=== PATIENT | male | born 1945 | race Caucasian/White ===

== ENCOUNTER 2020-12-15 15:16 | Inpatient (IN) | payer MEDICARE, OTHER, SELFPAY ==
[2020-12-15 15:45] VITALS: BP 190/110; PULSE 117; RESP 23; TEMP 37.8; O2SAT 91; BMI 26.9
--- NOTE | 2020-12-15 15:55 | XR_ITS ---
PROCEDURE INFORMATION: Exam: XR Chest Exam date and time: 12/15/2020 3:55 PM Age: 75 years old Clinical indication: Pain; Cough and fever and shortness of breath; Chest pressure; Additional info: Cough, fever, covid test pending TECHNIQUE: Imaging protocol: XR of the chest. Views: 2 views. COMPARISON: No relevant prior studies available. FINDINGS: Lungs: Faint bilateral airspace opacities scattered left more than right Pleural spaces: Unremarkable. No pleural effusion. No pneumothorax. Heart/Mediastinum: Unremarkable. No cardiomegaly. Bones/joints: Unremarkable. IMPRESSION: Faint bibasilar airspace opacities most likely represent infection
--- NOTE | 2020-12-15 15:57 | HMH.EDUTC ---
[facility] [place] Clinical Impression: LISBETH (acute kidney injury) Disposition: Admitted As Inpatient Condition on Discharge: Fair Medical Decision Making - Medical Records Medical records reviewed: No: I reviewed the patient's medical records. - [place] Inquiry Pt receiving controlled substance: No Vital Signs: 12/15/20 15:45 12/15/20 16:48 12/15/20 18:05 Temperature 100.1 F H 102.8 F H 101.2 F H Temperature Source Oral Oral Oral Pulse Rate Pulse Rate [Right] 117 H 113 H Respiratory Rate 23 22 Blood Pressure Blood Pressure [Right Arm] 190/110 H 184/89 H Blood Pressure Mean [Right Arm] 136 120 Blood Pressure Source Blood Pressure Position Blood Pressure Position [Right Arm] Sitting 02 Sat by Pulse Oximetry 91 L 91 L Oxygen Delivery Method Room Air Room Air Oxygen Flow Rate (LPM) 12/15/20 21:25 Temperature 98.2 F Temperature Source Oral Pulse Rate 100 H Pulse Rate [Right] Respiratory Rate 22 Blood Pressure 159/70 H Blood Pressure [Right Arm] Blood Pressure Mean [Right Arm] Blood Pressure Source Automatic Cuff Blood Pressure Position Sitting Blood Pressure Position [Right Arm] 02 Sat by Pulse Oximetry Oxygen Delivery Method Nasal Cannula Oxygen Flow Rate (LPM) 2 - Lab Data Lab results reviewed: Yes: I reviewed the patient's lab results. Lab Results 12/15/20 15:48: SARS-CoV-2 (PCR) Detected A, Influenza A Untype (PCR) Not detected, Influenza Type B (PCR) Not detected 12/15/20 16:31: WBC 9.1, RBC 4.67, Hgb 12.7 L, Hct 39.5 L, MCV 84.6, MCH 27.3, MCHC 32.3, RDW 14.6, Plt Count 241, MPV 8.4, Neut % (Auto) 74.6, Lymph % (Auto) 20.9, [place] % (Auto) 4.1, Eos % (Auto) 0.1, Baso % (Auto) 0.3, Neut # (Auto) 6.8, Lymph # (Auto) 1.9, [place] # (Auto) 0.4, Eos # (Auto) 0.0, Baso # (Auto) 0.0 12/15/20 16:31: Sodium 140, Potassium 4.9, Chloride 110 H, Carbon Dioxide 15 L, Anion Gap 19.9 H, BUN 46 H, Creatinine 2.00 H, Estimated Creat Clear 39, Estimated GFR 33 L, Est GFR ( Amer) 40 L, Glucose 156 H, Calcium 8.5, Total Bilirubin 0.7, AST 49, ALT 35, Alkaline Phosphatase 105, Total Protein 8.1, Albumin 4.5, Globulin 3.6 H, Albumin/Globulin Ratio 1.3 12/15/20 17:52: Specimen Source Left radial, O2 % Room air, ABG pH 7.37, ABG pCO2 26.6 L, ABG pO2 65.3 L, ABG HCO3 15.1 L, ABG Total CO2 16.0 L, ABG O2 Saturation 93, ABG Base Excess -10.1 L, Emiliano Test Acceptable 12/15/20 19:37: Sodium 139, Potassium 4.8, Chloride 109 H, Carbon Dioxide 17 L, Anion Gap 17.8 H, BUN 45 H, Creatinine 1.70 H, Estimated Creat Clear 46, Estimated GFR 40 L, Est GFR ( Amer) 48 L, Glucose 142 H, Calcium 7.8 L Result diagrams: 12/15/20 16:31 12/15/20 19:37 Orders (Tests/Meds): ED MEDICATIONS Generic Name Dose Route Start Last Admin Trade Name Freq PRN Reason Stop Dose Admin Lactated Ringer's 1,000 mls @ 999 mls/hr 12/15/20 21:56 Lactated Ringer's 1000 Ml Bag IV 12/15/20 22:56 .Q1H1M PHILLIP Lactated Ringer's 1,000 mls @ 50 mls/hr 12/15/20 21:56 Lactated Ringer's 1000 Ml Bag IV 01/14/21 21:55 .Q20H PHILLIP Discontinued Medications Generic Name Dose Route Start Last Admin Trade Name Freq PRN Reason Stop Dose Admin Lactated Ringer's 500 mls @ 999 mls/hr 12/15/20 17:45 12/15/20 18:04 Lactated Ringer's 1000 Ml Bag IV 12/15/20 18:15 999 mls/hr .Q31M PHILLIP Administration Lactated Ringer's 1,000 mls @ 999 mls/hr 12/15/20 19:15 12/15/20 19:12 Lactated Ringer's 1000 Ml Bag IV 12/15/20 20:15 999 mls/hr .Q1H1M [facility] Administration - Radiology Data #1 Image(s): Chest Image Reviewed: Yes I reviewed the patient's radiology image, Yes I have reviewed radiologist's interpretation Preliminary Findings: Abnormal ROCEDURE INFORMATION: Exam: XR Chest Exam date and time: 12/15/2020 3:55 PM Age: 75 years old Clinical indication: Pain; Cough and fever and shortness of breath; Chest pressure; Additional info: Cough, fever, covid test pending TECHNIQUE: Imaging protocol
[2020-12-15 16:28] LABS: Influenza A, PCR Not Detected (NotDetected); Influenza B, PCR Not Detected (NotDetected)
[2020-12-15 16:48] VITALS: BP 184/89; PULSE 113; RESP 22; TEMP 39.3; O2SAT 91; BMI 27.3
[2020-12-15 16:54] LABS: Coronavirus 19, PCR Detected (NotDetected)
[2020-12-15 17:20] LABS: Basophils % 0.3 % (0.1-2.0); Eosinophils % 0.1 % (0.1-12.0); Hematocrit 39.5 % (42.0-52.0); Hemoglobin 12.7 g/dL (14.1-18.0); Lymphocytes # 1.9 K/mm3 (0.7-4.5); Lymphocytes % 20.9 % (10-50); Mean Corpuscular HGB Conc 32.3 g/dL (31.8-35.4); Mean Corpuscular Hemoglobin 27.3 pg (27.0-31.2); Mean Corpuscular Volume 84.6 fl (80-94); Mean Platelet Volume 8.4 fl (7.4-10.4); Monocytes # 0.4 K/mm3 (0.1-1.0); Monocytes % 4.1 % (1.7-9.3); Neutrophils # 6.8 K/mm3 (1.8-7.8); Neutrophils % 74.6 % (37.0-80.0); Platelet Count 241 K/mm3 (142-424); Red Blood Count 4.67 M/mm3 (4.60-6.20); Red Cell Distribution Width 14.6 % (11.5-17.5); White Blood Count 9.1 K/mm3 (4.8-10.8)
[2020-12-15 17:22] LABS: Chloride 110 mmol/L (98-107); Potassium 4.9 mmoL/L (3.5-5.1); Sodium 140 mmol/L (136-145)
[2020-12-15 17:25] LABS: Alanine Aminotransferase 35 U/L (12-78); Albumin Level 4.5 g/dl (3.5-5.0); Albumin/Globulin Ratio 1.3 (1.1-1.8); Alkaline Phosphatase 105 U/L (38-126); Anion Gap 19.9 mEq/L (5-15); Aspartate Amino Transferase 49 U/L (17-59); Bilirubin,Total 0.7 mg/dl (0.2-1.3); Blood Urea Nitrogen 46 mg/dl (9-20); Carbon Dioxide 15 mmol/L (22.0-30.0); Creatinine Clearance Estimated 39 mL/min (50-200); Estimated Glomerular Filt Rate 33 ml/min (>60); GFR (African American) 40 ML/MIN (>60); Globulin 3.6 g/dL (1.3-3.2); Total Protein,Serum 8.1 g/dl (6.3-8.2)
[2020-12-15 17:26] LABS: Calcium 8.5 mg/dl (8.4-10.2); Glucose 156 mg/dl (74-100)
[2020-12-15 17:59] LABS: ABG Base Excess -10.1 mmol/L (-2.4-2.3); ABG HCO3 15.1 mmhg (22.0-26.0); ABG Oxygen Saturation 93 % (90-100); ABG PCO2 26.6 mmhg (35.0-45.0); ABG PH 7.37 mmol/L (7.35-7.45); ABG PO2 65.3 mmhg (80-100)
[2020-12-15 18:00] LABS: Allen's Test ACCEPTABLE; Oxygen ROOM AIR %; Source Left Radial
--- NOTE | 2020-12-15 18:03 | HMH.EDGENADL ---
ED Disposition Clinical Impression: LISBETH (acute kidney injury) Disposition: Admitted As Inpatient Condition on Discharge: Good Referrals: Daniel Ludwig MD [Primary Care Provider] - - Critical Care Critical Care Time: No Attestation: On 12/15/20, the high probability of a clinically significant, sudden or life threatening deterioration of the following system(s) required my full and direct attention, intervention and personal management. The time I documented below is in addition to time spent performing reported procedures but includes the following listed in this critical care notation. Medical Decision Making - Medical Records Medical records reviewed: Yes: I reviewed the patient's medical records. - [place] Inquiry Pt receiving controlled substance: No Vital Signs: 12/15/20 15:45 12/15/20 16:48 12/15/20 18:05 Temperature 100.1 F H 102.8 F H 101.2 F H Temperature Source Oral Oral Oral Pulse Rate [Right] 117 H 113 H Respiratory Rate 23 22 Blood Pressure [Right Arm] 190/110 H 184/89 H Blood Pressure Mean [Right Arm] 136 120 Blood Pressure Position [Right Arm] Sitting 02 Sat by Pulse Oximetry 91 L 91 L Oxygen Delivery Method Room Air Room Air - Lab Data Lab Results 12/15/20 15:48: SARS-CoV-2 (PCR) Detected A, Influenza A Untype (PCR) Not detected, Influenza Type B (PCR) Not detected 12/15/20 16:31: WBC 9.1, RBC 4.67, Hgb 12.7 L, Hct 39.5 L, MCV 84.6, MCH 27.3, MCHC 32.3, RDW 14.6, Plt Count 241, MPV 8.4, Neut % (Auto) 74.6, Lymph % (Auto) 20.9, [place] % (Auto) 4.1, Eos % (Auto) 0.1, Baso % (Auto) 0.3, Neut # (Auto) 6.8, Lymph # (Auto) 1.9, [place] # (Auto) 0.4, Eos # (Auto) 0.0, Baso # (Auto) 0.0 12/15/20 16:31: Sodium 140, Potassium 4.9, Chloride 110 H, Carbon Dioxide 15 L, Anion Gap 19.9 H, BUN 46 H, Creatinine 2.00 H, Estimated Creat Clear 39, Estimated GFR 33 L, Est GFR ( Amer) 40 L, Glucose 156 H, Calcium 8.5, Total Bilirubin 0.7, AST 49, ALT 35, Alkaline Phosphatase 105, Total Protein 8.1, Albumin 4.5, Globulin 3.6 H, Albumin/Globulin Ratio 1.3 12/15/20 17:52: Specimen Source Left radial, O2 % Room air, ABG pH 7.37, ABG pCO2 26.6 L, ABG pO2 65.3 L, ABG HCO3 15.1 L, ABG Total CO2 16.0 L, ABG O2 Saturation 93, ABG Base Excess -10.1 L, Emiliano Test Acceptable 12/15/20 19:37: Sodium 139, Potassium 4.8, Chloride 109 H, Carbon Dioxide 17 L, Anion Gap 17.8 H, BUN 45 H, Creatinine 1.70 H, Estimated Creat Clear 46, Estimated GFR 40 L, Est GFR ( Amer) 48 L, Glucose 142 H, Calcium 7.8 L Result diagrams: 12/15/20 16:31 12/15/20 19:37 Orders (Tests/Meds): ED MEDICATIONS Generic Name Dose Route Start Last Admin Trade Name Freq PRN Reason Stop Dose Admin Lactated Ringer's 500 mls @ 999 mls/hr 12/15/20 17:45 12/15/20 18:04 Lactated Ringer's 1000 Ml Bag IV 12/15/20 18:15 999 mls/hr .Q31M PHILLIP Administration Lactated Ringer's 1,000 mls @ 999 mls/hr 12/15/20 19:15 12/15/20 19:12 Lactated Ringer's 1000 Ml Bag IV 12/15/20 20:15 999 mls/hr .Q1H1M PHILLIP Administration ORDERS Category Date Time Status Basic Metabolic Panel AMLAB Lab 12/16/20 06:00 Ordered Medical Decision Narrative: Patient is a 75-year-old male presenting as a transfer from urgent care for hypoxia. Differential diagnosis includes pulmonary embolism, ammonia, COVID-19 infection. CBC CMP chest x-ray drawn in urgent care, patient is Covid positive from their swab. Labs show a metabolic acidosis, patient does have an elevated anion gap. Further evaluate this with ABG. Chest x-ray reveals diffuse bilateral infiltrate. Plan to recheck patient's BMP, however on further discussion we will admit overnight for IV fluids, to ensure renal function is normalizing at that is the weekend, patient would not be able to get a recheck until Thursday. Patient is amenable with this plan, Dr. Patel called for admit. General Adult HPI - General Chief complaint: Fever Stated complaint: covid test, cough,sore hroat,Vicente,V/D Ti
[2020-12-15 18:05] VITALS: TEMP 38.4
[2020-12-15 19:57] LABS: Anion Gap 17.8 mEq/L (5-15); Blood Urea Nitrogen 45 mg/dl (9-20); Calcium 7.8 mg/dl (8.4-10.2); Carbon Dioxide 17 mmol/L (22.0-30.0); Chloride 109 mmol/L (98-107); Creatinine Clearance Estimated 46 mL/min (50-200); Estimated Glomerular Filt Rate 40 ml/min (>60); GFR (African American) 48 ML/MIN (>60); Glucose 142 mg/dl (74-100); Potassium 4.8 mmoL/L (3.5-5.1); Sodium 139 mmol/L (136-145)
--- NOTE | 2020-12-15 20:12 | PC.NURSE ---
paged dr jamison re: admit
[2020-12-15 21:12] VITALS: BMI 27.3
[2020-12-15 21:25] VITALS: BP 159/70; PULSE 100; RESP 22; TEMP 36.8; O2SAT 95
--- NOTE | 2020-12-15 22:26 | PC.NURSE ---
PT ARRIVED TO FLOOR VIA W/C FROM ED W/STAFF AT [id number]
[2020-12-15 23:04] VITALS: BP 146/75; PULSE 90; RESP 22; TEMP 37.5; O2SAT 92
--- NOTE | 2020-12-16 02:58 | PC.NURSE ---
A&OX4. PT IS INDEPENDENT IN ROOM. PT HAS TOLERATED RA SINCE ARRIVAL TO FLOOR. O2 SAT IN LOWER 90S. PT DOES REPORT GETTING SOA WITH AMBULATION. PT HAS HAD MULTIPLE EPISODES OF DIARRHEA. STATES HE HAS BEEN HAVING THIS SINCE DIAGNOSED WITH COVID. WILL COLLECT SAMPLE NEXT TIME. PT HAS NO OTHER C/O THUS FAR. VSS WILL CONTINUE TO MONITOR.
[2020-12-16 04:00] VITALS: BP 138/77; PULSE 88; RESP 22; TEMP 37.2; O2SAT 92
[2020-12-16 08:00] VITALS: BP 173/72; PULSE 102; RESP 18; TEMP 37.9; O2SAT 91
--- NOTE | 2020-12-16 08:26 | HMH.PHAVTE ---
[facility] Pharmacy VTE Monitoring - Patient Demographics Admission date: 12/15/20 Report Date: 12/16/20 Time: 08:26 Allergies/Adverse Reactions: Patient Allergies No Known Allergies Allergy (Verified 12/15/20 15:59) Height: 1.75 m Weight: 83.915 kg Patient Problems: Current Active Problems LISBETH (acute kidney injury) (Acute) - VTE Risk Labs: VTE Related Lab Results Hgb 12.7 g/dL (14.1-18.0) L 12/15/20 16:31 Hct 39.5 % (42.0-52.0) L 12/15/20 16:31 Plt Count 241 K/mm3 (142-424) 12/15/20 16:31 BUN 45 mg/dl (9-20) H 12/15/20 19:37 Creatinine 1.70 mg/dl (0.66-1.25) H 12/15/20 19:37 Estimated Creat Clear 46 mL/min (50-200) 12/15/20 19:37 Was VTE Risk Assessment Performed: No Clinical Trial Participant: No - Prophylaxis VTE Prophylaxis Ordered?: Yes Types of VTE Prophylaxis: TEDS Knee High Location of Applied Device: Refused
--- NOTE | 2020-12-16 08:27 | HMH.PHAINT ---
MEDICATION RECONCILIATION COMPLETE USING EXTERNAL PHARMACY FILL HISTORY.
--- NOTE | 2020-12-16 08:31 | HMH.HP ---
*Admission Date: 12/15/20 *Chief complaint: Weakness *History of present illness: 75-year-old male presented to the urgent treatment clinic yesterday due to 3 to 4 days of vomiting, nausea, diarrhea with more than 6 watery bowel movements yesterday. Upon being triaged in the urgent treatment clinic patient was found to have O2 sats in the 70s. He also reported fevers to 102 at home. He was transferred to the emergency department where he underwent further work-up and required temporary application of nasal cannula at 2 L/min which brought his sats to 96%. Further work-up revealed acute kidney injury with a creatinine of 2. Chest x-ray concerning for bilateral infiltrates and COVID-19 test was positive. Patient was admitted for further observation. This morning the patient states he feels a little bit better. He still feels quite weak with some myalgias and diarrhea. He denies any vomiting overnight [facility] History I have reviewed the patient's past medical history: Yes Medical History: Reports:: Diabetes Mellitus Type 2, Hyperlipidemia, Hypertension *Have you ever received a pneumonia vaccine?: No *Have you received a flu vaccine this season?: Yes Other Surgeries: Yes: Cholecystectomy - *Social History Last grade of school completed: High school graduate Smoking Status: Never smoker Alcohol Intake: never *Occupational Status:: retired *Travel in the last 8 weeks: None Family Hx:: No significant family history Review of Systems - Constitutional Reports body ache(s), Reports chills, Reports lack of energy, Reports malaise - Eyes Denies blurry vision - ENT Denies difficulty swallowing - *Cardiovascular Denies chest pain, Denies chest pain at rest, Denies shortness of breath with activity - *Respiratory Reports chest congestion, Reports cough, Denies change in phlegm color, Denies shortness of breath - *Gastrointestinal Reports loose stools, Denies belching, Denies bloating - *Genitourinary Denies difficulty urinating - *Musculoskeletal Denies abnormal walking - Integumentary/Breasts Denies hair loss - *Neurologic Denies abnormal walking - Psychiatric Denies abnormal sleep pattern Meds Home Medications Medication Instructions Recorded Confirmed Type Amlodipine Besylate [Amlodipine 10 mg PO DAILY 12/16/20 12/16/20 History 10mg Tab] Atorvastatin Calcium [Lipitor 20mg 20 mg PO HS 12/16/20 12/16/20 History Tab] Benazepril HCl [Lotensin] 20 mg PO DAILY 12/16/20 12/16/20 History Diclofenac Sodium [Diclofenac 75mg 75 mg PO BID 12/16/20 12/16/20 History Tab] Latanoprost [Xalatan 0.005% Ophth 1 drp OP PM 12/16/20 12/16/20 History Soln 2.5mL] Metformin HCl [Metformin HCl ER] 500 mg PO TID 12/16/20 12/16/20 History Allergies Allergy/AdvReac Type Severity Reaction Status Date / Time No Known Allergies Allergy Verified 12/15/20 15:59 Exam Vital signs and Labs for Last 24 Hours: Temp Pulse Resp BP Pulse Ox 99 F 88 22 138/77 92 L 12/16/20 04:00 12/16/20 04:00 12/16/20 04:00 12/16/20 04:00 12/16/20 04:00 Laboratory Results - last 24 hr 12/15/20 15:48: SARS-CoV-2 (PCR) Detected A, Influenza A Untype (PCR) Not detected, Influenza Type B (PCR) Not detected 12/15/20 16:31: WBC 9.1, RBC 4.67, Hgb 12.7 L, Hct 39.5 L, MCV 84.6, MCH 27.3, MCHC 32.3, RDW 14.6, Plt Count 241, MPV 8.4, Neut % (Auto) 74.6, Lymph % (Auto) 20.9, [place] % (Auto) 4.1, Eos % (Auto) 0.1, Baso % (Auto) 0.3, Neut # (Auto) 6.8, Lymph # (Auto) 1.9, [place] # (Auto) 0.4, Eos # (Auto) 0.0, Baso # (Auto) 0.0 12/15/20 16:31: Sodium 140, Potassium 4.9, Chloride 110 H, Carbon Dioxide 15 L, Anion Gap 19.9 H, BUN 46 H, Creatinine 2.00 H, Estimated Creat Clear 39, Estimated GFR 33 L, Est GFR ( Amer) 40 L, Glucose 156 H, Calcium 8.5, Total Bilirubin 0.7, AST 49, ALT 35, Alkaline Phosphatase 105, Total Protein 8.1, Albumin 4.5, Globulin 3.6 H, Albumin/Globulin Ratio 1.3 12/15/20 17:52: Specimen Source Left radi
[2020-12-16 10:08] LABS: Alanine Aminotransferase 33 U/L (12-78); Albumin Level 3.4 g/dl (3.5-5.0); Alkaline Phosphatase 78 U/L (38-126); Aspartate Amino Transferase 47 U/L (17-59); Bilirubin,Direct 0.1 mg/dl (0.0-0.4); Bilirubin,Indirect 0.5 mg/dL (0.0-0.9); Bilirubin,Total 0.6 mg/dl (0.2-1.3); Bilirubin,Unconjugated 0.5 mg/dL (0.0-1.1); Total Protein,Serum 6.4 g/dl (6.3-8.2)
[2020-12-16 10:47] LABS: Chloride 112 mmol/L (98-107); Potassium 4.3 mmoL/L (3.5-5.1); Sodium 139 mmol/L (136-145)
[2020-12-16 10:50] LABS: Anion Gap 13.3 mEq/L (5-15); Blood Urea Nitrogen 33 mg/dl (9-20); Calcium 7.8 mg/dl (8.4-10.2); Carbon Dioxide 18 mmol/L (22.0-30.0); Creatinine Clearance Estimated 56 mL/min (50-200); Estimated Glomerular Filt Rate 50 ml/min (>60); GFR (African American) 60 ML/MIN (>60); Glucose 128 mg/dl (74-100)
[2020-12-16 12:00] VITALS: BP 127/55; PULSE 97; RESP 24; TEMP 37.6; O2SAT 94
[2020-12-16 16:00] VITALS: BP 161/68; PULSE 102; RESP 18; TEMP 38.2; O2SAT 90
--- NOTE | 2020-12-16 16:57 | PC.NURSE ---
PT IS AOX4, ABLE TO MAKE NEEDS KNOWN TO STAFF, HE HAS NOT REQUIRED O2 SUPPORT SINCE THIS RN ASSUMED CARE OF THE PT AT 1200. HIS VITAL SIGNS HAVE BEEN STABLE, HE DENIES N/V BUT STATES THAT HE HAS HAD SOME DIARRHEA.
[2020-12-16 20:00] VITALS: BP 146/88; PULSE 88; RESP 21; TEMP 37.1; O2SAT 90
[2020-12-17] VITALS: BP 138/77; PULSE 68; RESP 22; TEMP 36.7; O2SAT 90
[2020-12-17 02:05] LABS: POC Glucose,Bedside 216 (70-110)
[2020-12-17 02:05] LABS: POC Glucose,Bedside 131 (70-110)
--- NOTE | 2020-12-17 03:08 | PC.NURSE ---
A&OX4. CONTINUES TO TOLERATE RA WELL. PT IS UP INDEPENDENTLY IN ROOM. HAS A VERY GOOD APPETITE. HAS NOT C/O PAIN/SOA. PT DOES NOT SEEM TO HAVE A COUGH. PT HAS SLEPT MAJORITY OF SHIFT, VSS WILL CONTINUE TO MONITOR.
[2020-12-17 04:00] VITALS: BP 133/80; PULSE 88; RESP 18; TEMP 36.7; O2SAT 98
[2020-12-17 04:45] VITALS: BMI 27.3
[2020-12-17 07:01] LABS: Basophils % 0.9 % (0.1-2.0); Eosinophils % 0.3 % (0.1-12.0); Hematocrit 35.5 % (42.0-52.0); Hemoglobin 11.4 g/dL (14.1-18.0); Lymphocytes % 19.8 % (10-50); Mean Corpuscular Hemoglobin 27.1 pg (27.0-31.2); Mean Corpuscular Volume 84.8 fl (80-94); Mean Platelet Volume 8.4 fl (7.4-10.4); Monocytes # 0.4 K/mm3 (0.1-1.0); Monocytes % 8.7 % (1.7-9.3); Neutrophils # 3.4 K/mm3 (1.8-7.8); Neutrophils % 70.3 % (37.0-80.0); Platelet Count 250 K/mm3 (142-424); Red Blood Count 4.19 M/mm3 (4.60-6.20); Red Cell Distribution Width 14.4 % (11.5-17.5); White Blood Count 4.8 K/mm3 (4.8-10.8)
[2020-12-17 07:11] LABS: Alanine Aminotransferase 51 U/L (12-78); Albumin Level 3.5 g/dl (3.5-5.0); Alkaline Phosphatase 77 U/L (38-126); Anion Gap 15.6 mEq/L (5-15); Aspartate Amino Transferase 72 U/L (17-59); Bilirubin,Direct 0.2 mg/dl (0.0-0.4); Bilirubin,Indirect 0.2 mg/dL (0.0-0.9); Bilirubin,Total 0.4 mg/dl (0.2-1.3); Bilirubin,Unconjugated 0.3 mg/dL (0.0-1.1); Blood Urea Nitrogen 34 mg/dl (9-20); Carbon Dioxide 20 mmol/L (22.0-30.0); Chloride 111 mmol/L (98-107); Creatinine Clearance Estimated 60 mL/min (50-200); Estimated Glomerular Filt Rate 54 ml/min (>60); GFR (African American) 65 ML/MIN (>60); Glucose 172 mg/dl (74-100); Potassium 4.6 mmoL/L (3.5-5.1); Sodium 142 mmol/L (136-145); Total Protein,Serum 6.6 g/dl (6.3-8.2)
--- NOTE | 2020-12-17 07:36 | P.PN_ITS ---
Internal Medicine - PN: Subj *Date: 12/17/20 *Time: 07:36 Interval history: Patient reports feeling well. He denies shortness of breath. Exam Vital signs and Labs for Last 24 Hours: Temp Pulse Resp BP Pulse Ox 98.1 F 88 18 133/80 98 12/17/20 04:00 12/17/20 04:00 12/17/20 04:00 12/17/20 04:00 12/17/20 04:00 Laboratory Results - last 24 hr 12/16/20 09:40: Total Bilirubin 0.6, Direct Bilirubin 0.1, Conjugated Bilirubin 0.0, Indirect Bilirubin 0.5, Unconjugated Bilirubin 0.5, AST 47, ALT 33, Alkaline Phosphatase 78, Total Protein 6.4, Albumin 3.4 L D 12/16/20 09:40: Sodium 139, Potassium 4.3, Chloride 112 H, Carbon Dioxide 18 L, Anion Gap 13.3, BUN 33 H D, Creatinine 1.40 H, Estimated Creat Clear 56, Estimated GFR 50 L, Est GFR ( Amer) 60 D, Glucose 128 H, Calcium 7.8 L 12/16/20 16:14: POC Glucose 131 H 12/16/20 21:42: POC Glucose 216 H 12/17/20 06:29: WBC 4.8 D, RBC 4.19 L, Hgb 11.4 L, Hct 35.5 L, MCV 84.8, MCH 27.1, MCHC 32.0, RDW 14.4, Plt Count 250, MPV 8.4, Neut % (Auto) 70.3, Lymph % (Auto) 19.8, [place] % (Auto) 8.7, Eos % (Auto) 0.3, Baso % (Auto) 0.9, Neut # (Auto) 3.4, Lymph # (Auto) 1.0, [place] # (Auto) 0.4, Eos # (Auto) 0.0, Baso # (Auto) 0.0 12/17/20 06:29: Sodium 142, Potassium 4.6, Chloride 111 H, Carbon Dioxide 20 L, Anion Gap 15.6 H, BUN 34 H, Creatinine 1.30 H, Estimated Creat Clear 60, Estimated GFR 54 L, Est GFR ( Amer) 65, Glucose 172 H D, Calcium 8.0 L, Total Bilirubin 0.4, Direct Bilirubin 0.2, Conjugated Bilirubin 0.0, Indirect Bilirubin 0.2, Unconjugated Bilirubin 0.3, AST 72 H D, ALT 51 D, Alkaline Phosphatase 77, Total Protein 6.6, Albumin 3.5 I & O for Last 24 hours: Intake & Output 12/14/20 12/15/20 12/16/20 12/17/20 11:59 11:59 11:59 11:59 Intake Total 2240 / 2240 240 / 240 Output Total 360 / 360 Balance 2240 / 2240 -120 / -120 Weight 185 lb 185 lb Narrative: O2 sat 88% on room air at rest. Oropharynx is moist and clear. Neck is supple. Lungs have bilateral rhonchi. Heart has a regular rate and rhythm. Extremities are warm to the touch. Assessment and Plan (1) Acute respiratory failure Status: Acute Category: Medical Code(s): J96.00 - Acute respiratory failure, unspecified whether with hypoxia or hypercapnia (2) LISBETH (acute kidney injury) Status: Resolved Category: Medical Code(s): N17.9 - Acute kidney failure, unspecified (3) Viral pneumonia Status: Acute Category: Medical Code(s): J12.9 - Viral pneumonia, unspecified (4) COVID-19 virus infection Status: Acute Category: Medical Code(s): U07.1 - COVID-19 (5) Diabetes mellitus type 2, controlled Status: Acute Qualifiers: Diabetes mellitus board of education secretary insulin use: without board of education secretary use Category: Medical Code(s): E11.9 - Type 2 diabetes mellitus without complications (6) Essential hypertension Status: Acute Category: Medical Code(s): I10 - Essential (primary) hypertension (7) BMI 27.0-27.9,adult Status: Acute Category: Medical Code(s): Z68.27 - Body mass index [BMI] 27.0-27.9, adult - Assessment and plan all Dx Assessment and Plan for all problems:: 1. Patient has developed hypoxia and will need supplemental oxygen 2. Continue Remdesivir, dexamethasone, nutritional supplements for COVID-19 pneumonia
[2020-12-17 08:00] VITALS: BP 151/84; PULSE 89; RESP 18; TEMP 36.9; O2SAT 90
[2020-12-17 09:34] VITALS: BMI 27.4
[2020-12-17 11:01] LABS: POC Glucose,Bedside 198 (70-110)
[2020-12-17 11:46] VITALS: BP 143/86; PULSE 90; RESP 22; TEMP 37.2; O2SAT 93
[2020-12-17 16:00] VITALS: BP 156/93; PULSE 95; RESP 16; TEMP 37.2; O2SAT 93
[2020-12-17 17:40] LABS: POC Glucose,Bedside 207 (70-110)
[2020-12-17 17:40] LABS: POC Glucose,Bedside 215 (70-110)
[2020-12-17 20:00] VITALS: BP 164/64; PULSE 93; RESP 20; TEMP 36.8; O2SAT 92
[2020-12-17 22:13] LABS: POC Glucose,Bedside 322 (70-110)
[2020-12-18] VITALS (11 sets, daily range): BP systolic 113–153; BP diastolic 66–92; PULSE 80–106; RESP 19–24; TEMP 36.6–37.2; O2SAT 92–94; BMI 30.2
--- NOTE | 2020-12-18 04:58 | PC.NURSE ---
no acute changes overnight. pt remains on 2L NC, sats in the mid 90s. pt has an intermittent nonproductive cough. lungs are diminished with fine crackles in the bases. pt reports feeling tired but better overall. IV patent, SL. VSS, call light in reach, no concerns at this time.
[2020-12-18 06:14] LABS: POC Glucose,Bedside 223 (70-110)
[2020-12-18 07:18] LABS: Basophils % 0.2 % (0.1-2.0); Eosinophils % 0.2 % (0.1-12.0); Hematocrit 36.4 % (42.0-52.0); Hemoglobin 11.6 g/dL (14.1-18.0); Lymphocytes % 10.9 % (10-50); Mean Corpuscular HGB Conc 31.7 g/dL (31.8-35.4); Mean Corpuscular Hemoglobin 26.9 pg (27.0-31.2); Mean Corpuscular Volume 84.6 fl (80-94); Mean Platelet Volume 8.5 fl (7.4-10.4); Monocytes # 0.7 K/mm3 (0.1-1.0); Monocytes % 6.9 % (1.7-9.3); Neutrophils # 7.7 K/mm3 (1.8-7.8); Neutrophils % 81.8 % (37.0-80.0); Platelet Count 288 K/mm3 (142-424); Red Blood Count 4.31 M/mm3 (4.60-6.20); Red Cell Distribution Width 14.5 % (11.5-17.5); White Blood Count 9.4 K/mm3 (4.8-10.8)
[2020-12-18 07:20] LABS: Anion Gap 14.6 mEq/L (5-15); Blood Urea Nitrogen 37 mg/dl (9-20); Calcium 8.2 mg/dl (8.4-10.2); Carbon Dioxide 21 mmol/L (22.0-30.0); Chloride 110 mmol/L (98-107); Creatinine Clearance Estimated 72 mL/min (50-200); Estimated Glomerular Filt Rate 59 ml/min (>60); GFR (African American) 72 ML/MIN (>60); Glucose 199 mg/dl (74-100); Potassium 4.6 mmoL/L (3.5-5.1); Sodium 141 mmol/L (136-145)
--- NOTE | 2020-12-18 07:49 | HMH.ACPN2 ---
Internal Medicine - PN: Subj *Date: 12/18/20 *Time: 07:49 Interval history: Patient feels about the same. He has mild dyspnea on exertion. He has low energy. Appetite is good Exam Vital signs and Labs for Last 24 Hours: Temp Pulse Resp BP Pulse Ox 97.8 F 80 24 150/88 H 92 L 12/18/20 04:00 12/18/20 04:00 12/18/20 04:00 12/18/20 04:00 12/18/20 04:00 Laboratory Results - last 24 hr 12/17/20 05:03: POC Glucose 198 H 12/17/20 12:16: POC Glucose 207 H 12/17/20 17:21: POC Glucose 215 H 12/17/20 21:54: POC Glucose 322 H* 12/18/20 05:30: WBC 9.4 D, RBC 4.31 L, Hgb 11.6 L, Hct 36.4 L, MCV 84.6, MCH 26.9 L, MCHC 31.7 L, RDW 14.5, Plt Count 288, MPV 8.5, Neut % (Auto) 81.8 H, Lymph % (Auto) 10.9, [place] % (Auto) 6.9, Eos % (Auto) 0.2, Baso % (Auto) 0.2, Neut # (Auto) 7.7, Lymph # (Auto) 1.0, [place] # (Auto) 0.7, Eos # (Auto) 0.0, Baso # (Auto) 0.0 12/18/20 05:30: Sodium 141, Potassium 4.6, Chloride 110 H, Carbon Dioxide 21 L, Anion Gap 14.6, BUN 37 H, Creatinine 1.20, Estimated Creat Clear 72, Estimated GFR 59, Est GFR ( Amer) 72, Glucose 199 H, Calcium 8.2 L 12/18/20 06:03: POC Glucose 223 H I & O for Last 24 hours: Intake & Output 12/15/20 12/16/20 12/17/20 12/18/20 11:59 11:59 11:59 11:59 Intake Total 2240 / 2240 480 / 480 580 / 580 Output Total 360 / 360 Balance 2240 / 2240 120 / 120 580 / 580 Weight 185 lb 185 lb 3.013 oz 204 lb Narrative: Patient looks comfortable. O2 sat is 91% on 2-1/2 L/min. Lungs have basilar and midlung rales posteriorly. Heart has a regular rate and rhythm. Abdomen is soft Assessment and Plan (1) Acute respiratory failure Status: Acute Category: Medical Code(s): J96.00 - Acute respiratory failure, unspecified whether with hypoxia or hypercapnia (2) LISBETH (acute kidney injury) Status: Resolved Category: Medical Code(s): N17.9 - Acute kidney failure, unspecified (3) Viral pneumonia Status: Acute Category: Medical Code(s): J12.9 - Viral pneumonia, unspecified (4) COVID-19 virus infection Status: Acute Category: Medical Code(s): U07.1 - COVID-19 (5) Diabetes mellitus type 2, controlled Status: Acute Qualifiers: Diabetes mellitus shelter insulin use: without shelter use Category: Medical Code(s): E11.9 - Type 2 diabetes mellitus without complications (6) Essential hypertension Status: Acute Category: Medical Code(s): I10 - Essential (primary) hypertension (7) BMI 27.0-27.9,adult Status: Acute Category: Medical Code(s): Z68.27 - Body mass index [BMI] 27.0-27.9, adult - Assessment and plan all Dx Assessment and Plan for all problems:: Add Advair for patient's viral pneumonia from COVID-19. Continue close monitoring for increased oxygen requirement
[2020-12-18 10:11] LABS: Alanine Aminotransferase 70 U/L (12-78); Albumin Level 3.6 g/dl (3.5-5.0); Albumin/Globulin Ratio 1.1 (1.1-1.8); Alkaline Phosphatase 77 U/L (38-126); Anion Gap 16.4 mEq/L (5-15); Aspartate Amino Transferase 76 U/L (17-59); Bilirubin,Total 0.5 mg/dl (0.2-1.3); Blood Urea Nitrogen 37 mg/dl (9-20); Calcium 8.4 mg/dl (8.4-10.2); Carbon Dioxide 21 mmol/L (22.0-30.0); Chloride 110 mmol/L (98-107); Creatinine Clearance Estimated 62 mL/min (50-200); Estimated Glomerular Filt Rate 50 ml/min (>60); GFR (African American) 60 ML/MIN (>60); Globulin 3.3 g/dL (1.3-3.2); Glucose 193 mg/dl (74-100); Potassium 4.4 mmoL/L (3.5-5.1); Sodium 143 mmol/L (136-145); Total Protein,Serum 6.9 g/dl (6.3-8.2)
[2020-12-18 12:35] LABS: POC Glucose,Bedside 184 (70-110)
[2020-12-18 16:49] LABS: POC Glucose,Bedside 420 (70-110)
--- NOTE | 2020-12-18 17:29 | PC.NURSE ---
Pt has been pleasant and cooperative this shift. A&O X4. No complaints of pain or SOA. Pt is receiving O2 via NC @ 2 LPM with sats. >90%. Lung sounds reveal expiratory rhonchi. No edema noted. Skin is C/D/I. Pt ambulates independently to/from the bathroom and throughout the room. Pt turns/repositions frequently and also prones himself as needed. Urine is clear and yellow. No BM this shift. Appetite is good and pt eats the majority of all meals. 20 G peripheral IV in the LT AC is patent and SL. VSS. Call light within reach. Will continue to monitor.
[2020-12-18 22:12] LABS: POC Glucose,Bedside 328 (70-110)
[2020-12-19] VITALS (11 sets, daily range): BP systolic 102–157; BP diastolic 54–93; PULSE 75–105; RESP 16–22; TEMP 36.6–37; O2SAT 92–96; BMI 29.6
[2020-12-19 07:14] LABS: Basophils % 0.1 % (0.1-2.0); Eosinophils % 0.2 % (0.1-12.0); Hematocrit 34.8 % (42.0-52.0); Hemoglobin 10.9 g/dL (14.1-18.0); Lymphocytes # 0.8 K/mm3 (0.7-4.5); Lymphocytes % 9.4 % (10-50); Mean Corpuscular HGB Conc 31.3 g/dL (31.8-35.4); Mean Corpuscular Hemoglobin 26.9 pg (27.0-31.2); Mean Platelet Volume 8.7 fl (7.4-10.4); Monocytes # 0.8 K/mm3 (0.1-1.0); Monocytes % 8.6 % (1.7-9.3); Neutrophils # 7.3 K/mm3 (1.8-7.8); Neutrophils % 81.7 % (37.0-80.0); Platelet Count 318 K/mm3 (142-424); Red Blood Count 4.05 M/mm3 (4.60-6.20); Red Cell Distribution Width 14.6 % (11.5-17.5); White Blood Count 8.9 K/mm3 (4.8-10.8)
[2020-12-19 07:16] LABS: Alanine Aminotransferase 60 U/L (12-78); Albumin Level 3.3 g/dl (3.5-5.0); Albumin/Globulin Ratio 1.1 (1.1-1.8); Alkaline Phosphatase 75 U/L (38-126); Anion Gap 14.3 mEq/L (5-15); Aspartate Amino Transferase 60 U/L (17-59); Bilirubin,Total 0.4 mg/dl (0.2-1.3); Blood Urea Nitrogen 44 mg/dl (9-20); Calcium 7.9 mg/dl (8.4-10.2); Carbon Dioxide 20 mmol/L (22.0-30.0); Chloride 109 mmol/L (98-107); Creatinine Clearance Estimated 56 mL/min (50-200); Estimated Glomerular Filt Rate 46 ml/min (>60); GFR (African American) 56 ML/MIN (>60); Globulin 2.9 g/dL (1.3-3.2); Glucose 242 mg/dl (74-100); Potassium 4.3 mmoL/L (3.5-5.1); Sodium 139 mmol/L (136-145); Total Protein,Serum 6.2 g/dl (6.3-8.2)
--- NOTE | 2020-12-19 07:47 | HMH.ACPN2 ---
Internal Medicine - PN: Subj *Date: 12/19/20 *Time: 07:47 Interval history: Patient feels like his day went well yesterday. He is primarily remained in bed. Appetite is good. He admits to feeling weak. He reports not having a bowel movement in 3 days Exam Vital signs and Labs for Last 24 Hours: Temp Pulse Resp BP Pulse Ox 98.1 F 83 18 126/68 96 12/19/20 04:00 12/19/20 06:46 12/19/20 04:00 12/19/20 04:00 12/19/20 06:46 Laboratory Results - last 24 hr 12/18/20 09:37: Sodium 143, Potassium 4.4, Chloride 110 H, Carbon Dioxide 21 L, Anion Gap 16.4 H, BUN 37 H, Creatinine 1.40 H, Estimated Creat Clear 62, Estimated GFR 50 L, Est GFR ( Amer) 60, Glucose 193 H, Calcium 8.4, Total Bilirubin 0.5, AST 76 H, ALT 70 D, Alkaline Phosphatase 77, Total Protein 6.9, Albumin 3.6, Globulin 3.3 H, Albumin/Globulin Ratio 1.1 12/18/20 11:53: POC Glucose 184 H 12/18/20 16:29: POC Glucose 420 H* 12/18/20 20:26: POC Glucose 328 H* 12/19/20 05:39: WBC 8.9, RBC 4.05 L, Hgb 10.9 L, Hct 34.8 L, MCV 86.0, MCH 26.9 L, MCHC 31.3 L, RDW 14.6, Plt Count 318, MPV 8.7, Neut % (Auto) 81.7 H, Lymph % (Auto) 9.4 L, [place] % (Auto) 8.6, Eos % (Auto) 0.2, Baso % (Auto) 0.1, Neut # (Auto) 7.3, Lymph # (Auto) 0.8, [place] # (Auto) 0.8, Eos # (Auto) 0.0, Baso # (Auto) 0.0 12/19/20 06:00: Sodium 139, Potassium 4.3, Chloride 109 H, Carbon Dioxide 20 L, Anion Gap 14.3, BUN 44 H, Creatinine 1.50 H, Estimated Creat Clear 56, Estimated GFR 46 L, Est GFR ( Amer) 56 L, Glucose 242 H D, Calcium 7.9 L, Total Bilirubin 0.4, AST 60 H, ALT 60, Alkaline Phosphatase 75, Total Protein 6.2 L, Albumin 3.3 L, Globulin 2.9, Albumin/Globulin Ratio 1.1 I & O for Last 24 hours: Intake & Output 12/16/20 12/17/20 12/18/20 12/19/20 11:59 11:59 11:59 11:59 Intake Total 2240 / 2240 480 / 480 820 / 820 580 / 580 Output Total 360 / 360 Balance 2240 / 2240 120 / 120 820 / 820 580 / 580 Weight 185 lb 185 lb 3.013 oz 204 lb 200 lb 1 oz Narrative: Patient appears comfortable. Lungs have bibasilar rales. Heart has a regular rate and rhythm. Abdomen is obese. Extremities are without edema Assessment and Plan (1) Acute respiratory failure Status: Acute Category: Medical Code(s): J96.00 - Acute respiratory failure, unspecified whether with hypoxia or hypercapnia (2) LISBETH (acute kidney injury) Status: Resolved Category: Medical Code(s): N17.9 - Acute kidney failure, unspecified (3) Viral pneumonia Status: Acute Category: Medical Code(s): J12.9 - Viral pneumonia, unspecified (4) COVID-19 virus infection Status: Acute Category: Medical Code(s): U07.1 - COVID-19 (5) Diabetes mellitus type 2, controlled Status: Acute Qualifiers: Diabetes mellitus shelter insulin use: without shelter use Category: Medical Code(s): E11.9 - Type 2 diabetes mellitus without complications (6) Essential hypertension Status: Acute Category: Medical Code(s): I10 - Essential (primary) hypertension (7) BMI 27.0-27.9,adult Status: Acute Category: Medical Code(s): Z68.27 - Body mass index [BMI] 27.0-27.9, adult - Assessment and plan all Dx Assessment and Plan for all problems:: Patient's O2 sats are remaining stable. I have encouraged the patient to be more active today and see how he feels. If he has significant hypoxia with ambulation that will delay discharge. If patient is able to maintain O2 sats in the 90s on 2 to 3 L without increasing oxygen requirement over the next 24 hours consideration will be given to discharge
--- NOTE | 2020-12-19 11:21 | HMH.PTEV ---
Physical Therapy Evaluation Rehab PT IP Evaluation Start: 12/19/20 09:38 Freq: ONCE Status: Active Protocol: Document 12/19/20 11:14 PHORALEXA (Rec: 12/19/20 11:21 PHORNE [id number]) Subjective/History History History Pt is 75 year old male admitted to [facility] for Covid and pneumonia. Pt lives in home with and reports independence with no prior use of AD before admittance to [facility]. Note completed by CARMEN Bey. Subjective Subjective Pt reports feeling well this morning and states he has been walking in his room. While walking with PT during eval, pt's O2 sat stayed at 87% and returned to low 90s after resting in bed for a couple of minutes. Rehab PT IP Eval Objective Appearance Patient Behavior Appropriate,Cooperative Patient Orientation Place,Name,Birthday,Year Difficulty following instructions none Speech Pattern Clear,Appropriate,Coherent Ambulation Patient Able to Ambulate Yes Ambulation Observation IP General Gait Pattern Observation No Deviations/Normal Ambulation Distance (feet) 60 Ambulation Assistive Device None Ambulation Ability Independent Balance Ability to Arise Able, uses arms to help Sitting Balance Steady, safe Standing Balance Steady, wide stance Dynamic Sitting Balance Ability Normal Dynamic Standing Balance Ability Normal Transfers Bed Transfer Ability Independent Sit to Stand Bed Transfer Ability Independent ROM All Extremities PT ROM Status WFL MMT All Extremities PT MMT WFL Rehab PT IP prob,goals,plan Problems Date of Evaluation: 12/19/20 Discharge Plan PT Discharge Plan Pt would be safe to d/c home when medically stable. Pt is ambulating in room independently and at PLOF. Pt does not need PT. G -code Required No Eval Complexity Eval Charge Codes 45430 - Moderate Complexity PHYSICIAN CERTIFICATION: I certify the specified therapy services for Gee Wallis are required, authorized, and reviewed every 30 days.
--- NOTE | 2020-12-19 13:14 | DIET.NUTRFU ---
PO intakes 50-75%, weight down 4#, no BM 3d, BG moderate-high- avg. 260.
[2020-12-19 17:20] LABS: POC Glucose,Bedside 381 (70-110)
[2020-12-19 17:20] LABS: POC Glucose,Bedside 302 (70-110)
--- NOTE | 2020-12-19 19:51 | PC.NURSE ---
Remains on 3 L NC at this time. VSS. Med per jun. CB in reach.
[2020-12-20] VITALS (8 sets, daily range): BP systolic 139–164; BP diastolic 74–94; PULSE 79–107; RESP 16–28; TEMP 36.4–37.1; O2SAT 91–93
[2020-12-20 00:47] LABS: POC Glucose,Bedside 405 (70-110)
[2020-12-20 01:53] LABS: POC Glucose,Bedside 258 (70-110)
--- NOTE | 2020-12-20 03:35 | PC.NURSE ---
Pt alert and oriented x 4. No acute changes t/o the night. Pt on 3L nasal canula and no complaints of pain, SOA. VSS remained stable t/o night. Call orr within reach, will continue to monitor.
[2020-12-20 06:49] LABS: POC Glucose,Bedside 235 (70-110)
[2020-12-20 07:27] LABS: Basophils % 0.2 % (0.1-2.0); Eosinophils % 0.4 % (0.1-12.0); Hematocrit 33.9 % (42.0-52.0); Hemoglobin 10.7 g/dL (14.1-18.0); Lymphocytes # 0.9 K/mm3 (0.7-4.5); Lymphocytes % 10.1 % (10-50); Mean Corpuscular HGB Conc 31.5 g/dL (31.8-35.4); Mean Corpuscular Hemoglobin 26.8 pg (27.0-31.2); Monocytes # 0.7 K/mm3 (0.1-1.0); Monocytes % 8.2 % (1.7-9.3); Neutrophils % 81.1 % (37.0-80.0); Platelet Count 346 K/mm3 (142-424); Red Blood Count 3.99 M/mm3 (4.60-6.20); Red Cell Distribution Width 14.7 % (11.5-17.5); White Blood Count 8.6 K/mm3 (4.8-10.8)
[2020-12-20 07:28] LABS: Alanine Aminotransferase 59 U/L (12-78); Albumin Level 3.1 g/dl (3.5-5.0); Alkaline Phosphatase 68 U/L (38-126); Anion Gap 16.2 mEq/L (5-15); Aspartate Amino Transferase 55 U/L (17-59); Bilirubin,Total 0.5 mg/dl (0.2-1.3); Blood Urea Nitrogen 41 mg/dl (9-20); Calcium 8.1 mg/dl (8.4-10.2); Carbon Dioxide 19 mmol/L (22.0-30.0); Chloride 110 mmol/L (98-107); Creatinine Clearance Estimated 65 mL/min (50-200); Estimated Glomerular Filt Rate 54 ml/min (>60); GFR (African American) 65 ML/MIN (>60); Glucose 210 mg/dl (74-100); Potassium 4.2 mmoL/L (3.5-5.1); Sodium 141 mmol/L (136-145); Total Protein,Serum 6.1 g/dl (6.3-8.2)
--- NOTE | 2020-12-20 10:21 | PC.NURSE ---
Acapella explained to patient. Pt voices understanding. Acapella x20 breaths, Pt tolerated tx well.
[2020-12-20 12:20] LABS: POC Glucose,Bedside 200 (70-110)
--- NOTE | 2020-12-20 12:37 | P.PN_ITS ---
Internal Medicine - PN: Subj *Date: 12/20/20 *Time: 12:37 Interval history: Feels tired. Does not feel worse, but does not feel better. Exam Vital signs and Labs for Last 24 Hours: Temp Pulse Resp BP Pulse Ox 98.5 F 98 H 28 H 154/86 H 91 L 12/20/20 11:48 12/20/20 11:48 12/20/20 11:48 12/20/20 11:48 12/20/20 10:18 Laboratory Results - last 24 hr 12/19/20 05:40: POC Glucose 258 H 12/19/20 12:43: POC Glucose 302 H* 12/19/20 16:56: POC Glucose 381 H* 12/19/20 20:34: POC Glucose 405 H* 12/20/20 05:45: POC Glucose 235 H 12/20/20 06:21: WBC 8.6, RBC 3.99 L, Hgb 10.7 L, Hct 33.9 L, MCV 85.0, MCH 26.8 L, MCHC 31.5 L, RDW 14.7, Plt Count 346, MPV 9.0, Neut % (Auto) 81.1 H, Lymph % (Auto) 10.1, [place] % (Auto) 8.2, Eos % (Auto) 0.4, Baso % (Auto) 0.2, Neut # (Auto) 7.0, Lymph # (Auto) 0.9, [place] # (Auto) 0.7, Eos # (Auto) 0.0, Baso # (Auto) 0.0 12/20/20 06:21: Sodium 141, Potassium 4.2, Chloride 110 H, Carbon Dioxide 19 L, Anion Gap 16.2 H, BUN 41 H, Creatinine 1.30 H, Estimated Creat Clear 65, Estimated GFR 54 L, Est GFR ( Amer) 65, Glucose 210 H, Calcium 8.1 L, Total Bilirubin 0.5, AST 55, ALT 59, Alkaline Phosphatase 68, Total Protein 6.1 L, Albumin 3.1 L, Globulin 3.0, Albumin/Globulin Ratio 1.0 L 12/20/20 11:38: POC Glucose 200 H I & O for Last 24 hours: Intake & Output 12/18/20 12/19/20 12/20/20 12/21/20 11:59 11:59 11:59 11:59 Intake Total 820 / 820 1060 / 1060 580 / 580 Balance 820 / 820 1060 / 1060 580 / 580 Weight 204 lb 200 lb 1 oz Microbiology Reports for the Last 24 Hours: Microbiology 12/16/20 08:43 Sputum - Expectorated Sputum Gram Stain - Final Narrative: Patient looks ill this a.m. Lungs have bilateral rhonchi and rales. Heart has a RRR. Ext. without edema Assessment and Plan (1) Viral pneumonia Status: Acute Category: Medical Code(s): J12.9 - Viral pneumonia, unspecified (2) LISBETH (acute kidney injury) Status: Resolved Category: Medical Code(s): N17.9 - Acute kidney failure, unspecified (3) COVID-19 virus infection Status: Acute Category: Medical Code(s): U07.1 - COVID-19 (4) Diabetes mellitus type 2, controlled Status: Acute Qualifiers: Diabetes mellitus long term care phlebotomist insulin use: without long term care phlebotomist use Category: Medical Code(s): E11.9 - Type 2 diabetes mellitus without complications (5) Essential hypertension Status: Acute Category: Medical Code(s): I10 - Essential (primary) hypertension (6) BMI 27.0-27.9,adult Status: Acute Category: Medical Code(s): Z68.27 - Body mass index [BMI] 27.0-27.9, adult - Assessment and plan all Dx Assessment and Plan for all problems:: 1. Continue remdesivir, dexametasone, 2. Add advair bid 3. IS q1h 4. ambulate as tolerated 5. Monitor for declining oxygen sats
[2020-12-20 16:57] LABS: POC Glucose,Bedside 383 (70-110)
--- NOTE | 2020-12-20 18:36 | PC.NURSE ---
No acute changes this shift. Remains on 3 L NC at this time. VSS.
[2020-12-20 22:04] LABS: POC Glucose,Bedside 386 (70-110)
[2020-12-21] VITALS: BP 145/71; PULSE 80; RESP 19; TEMP 36.9; O2SAT 100
[2020-12-21 04:00] VITALS: BP 140/77; PULSE 66; RESP 20; TEMP 36.7; O2SAT 100
[2020-12-21 04:34] VITALS: BMI 29.6
[2020-12-21 06:56] LABS: Basophils % 0.2 % (0.1-2.0); Eosinophils % 0.1 % (0.1-12.0); Hematocrit 34.7 % (42.0-52.0); Lymphocytes # 1.1 K/mm3 (0.7-4.5); Lymphocytes % 14.4 % (10-50); Mean Corpuscular HGB Conc 31.7 g/dL (31.8-35.4); Mean Corpuscular Volume 85.2 fl (80-94); Mean Platelet Volume 7.9 fl (7.4-10.4); Monocytes # 0.7 K/mm3 (0.1-1.0); Monocytes % 8.5 % (1.7-9.3); Neutrophils # 5.9 K/mm3 (1.8-7.8); Neutrophils % 76.8 % (37.0-80.0); Platelet Count 316 K/mm3 (142-424); Red Blood Count 4.08 M/mm3 (4.60-6.20); Red Cell Distribution Width 14.6 % (11.5-17.5); White Blood Count 7.7 K/mm3 (4.8-10.8)
[2020-12-21 07:08] LABS: POC Glucose,Bedside 197 (70-110)
[2020-12-21 07:13] LABS: Alanine Aminotransferase 58 U/L (12-78); Albumin Level 3.2 g/dl (3.5-5.0); Albumin/Globulin Ratio 1.1 (1.1-1.8); Alkaline Phosphatase 70 U/L (38-126); Anion Gap 11.5 mEq/L (5-15); Aspartate Amino Transferase 51 U/L (17-59); Bilirubin,Total 0.7 mg/dl (0.2-1.3); Blood Urea Nitrogen 39 mg/dl (9-20); Calcium 8.3 mg/dl (8.4-10.2); Carbon Dioxide 23 mmol/L (22.0-30.0); Chloride 109 mmol/L (98-107); Creatinine Clearance Estimated 65 mL/min (50-200); Estimated Glomerular Filt Rate 54 ml/min (>60); GFR (African American) 65 ML/MIN (>60); Glucose 185 mg/dl (74-100); Potassium 4.5 mmoL/L (3.5-5.1); Sodium 139 mmol/L (136-145); Total Protein,Serum 6.2 g/dl (6.3-8.2)
--- NOTE | 2020-12-21 07:25 | HMH.DCSUM ---
General - General Admission date:: 12/15/20 Discharge date: 12/21/20 HPI HPI: 75-year-old male presented to the urgent treatment clinic yesterday due to 3 to 4 days of vomiting, nausea, diarrhea with more than 6 watery bowel movements yesterday. Upon being triaged in the urgent treatment clinic patient was found to have O2 sats in the 70s. He also reported fevers to 102 at home. He was transferred to the emergency department where he underwent further work-up and required temporary application of nasal cannula at 2 L/min which brought his sats to 96%. Further work-up revealed acute kidney injury with a creatinine of 2. Chest x-ray concerning for bilateral infiltrates and COVID-19 test was positive. Patient was admitted for further observation. This morning the patient states he feels a little bit better. He still feels quite weak with some myalgias and diarrhea. He denies any vomiting overnight Hospital Course Hospital Course: Patient was diagnosed with acute respiratory failure from COVID-19 pneumonia and acute kidney injury. Initial plan was to admit patient for treatment of acute kidney injury. He developed oxygen requirement within the first 24 hours of hospitalization. Acute kidney injury resolved with IV fluids. Once patient developed his oxygen requirement he was started on dexamethasone and Remdesivir for viral pneumonia due to COVID-19. Patient had mild increase in oxygen requirement during the week peaking at 4 L/min. Patient remained ambulatory. He did endorse loss of energy. By the day of discharge patient was satting at 100% on 3 L/min and in the low to mid 90s on 2 L/min. Patient felt well enough to provide basic needs for himself at home. Patient was discharged to home in stable condition. Patient will follow up in the office next Thursday, December 26. Objective Vital signs: Temp Pulse Resp BP Pulse Ox 98.1 F 66 20 140/77 100 12/21/20 04:00 12/21/20 04:00 12/21/20 04:00 12/21/20 04:00 12/21/20 04:00 no acute distress - *Routine Respiratory Exam Present: rales - *Routine Cardiovascular Exam Present: RRR - *Routine Abdominal Exam Present: soft, normoactive bowel sounds. Absent: tenderness Results Labs on day of discharge: Labs from last 24 hours 12/21/20 12/21/20 12/21/20 06:16 06:16 05:57 WBC 7.7 RBC 4.08 L Hgb 11.0 L Hct 34.7 L MCV 85.2 MCH 27.0 MCHC 31.7 L RDW 14.6 Plt Count 316 MPV 7.9 Neut % (Auto) 76.8 Lymph % (Auto) 14.4 [place] % (Auto) 8.5 Eos % (Auto) 0.1 Baso % (Auto) 0.2 Neut # (Auto) 5.9 Lymph # (Auto) 1.1 [place] # (Auto) 0.7 Eos # (Auto) 0.0 Baso # (Auto) 0.0 Sodium 139 Potassium 4.5 Chloride 109 H Carbon Dioxide 23 Anion Gap 11.5 BUN 39 H Creatinine 1.30 H Estimated Creat Clear 65 Estimated GFR 54 L Est GFR ( Amer) 65 Glucose 185 H POC Glucose 197 H Calcium 8.3 L Total Bilirubin 0.7 AST 51 ALT 58 Alkaline Phosphatase 70 Total Protein 6.2 L Albumin 3.2 L Globulin 3.0 Albumin/Globulin Ratio 1.1 12/20/20 12/20/20 12/20/20 21:27 15:27 11:38 WBC RBC Hgb Hct MCV MCH MCHC RDW Plt Count MPV Neut % (Auto) Lymph % (Auto) [place] % (Auto) Eos % (Auto) Baso % (Auto) Neut # (Auto) Lymph # (Auto) [place] # (Auto) Eos # (Auto) Baso # (Auto) Sodium Potassium Chloride Carbon Dioxide Anion Gap BUN Creatinine Estimated Creat Clear Estimated GFR Est GFR ( Amer) Glucose POC Glucose 386 H* 383 H* 200 H Calcium Total Bilirubin AST ALT Alkaline Phosphatase Total Protein Albumin Globulin Albumin/Globulin Ratio 12/20/20 12/20/20 06:21 06:21 WBC 8.6 RBC 3.99 L Hgb 10.7 L Hct 33.9 L MCV 85.0 MCH 26.8 L MCHC 31.5 L RDW 14.7 Plt Count 3
[2020-12-21 07:42] VITALS: BP 153/87; PULSE 89; RESP 20; TEMP 36.8; O2SAT 91
[2020-12-21 08:00] VITALS: PULSE 89; RESP 20; O2SAT 91
[2020-12-21 10:02] VITALS: O2SAT 90
--- NOTE | 2020-12-21 10:15 | SW/DCPLANNER ---
RECEIVED ORDER FOR HOME 02 FOR THIS PATIENT THAT WAS ADMITTED WITH COVID... PATIENT IS DISCHARGING HOME TODAY AND A PORTABLE TANK WILL BE DELIVERED TO HOSPITAL PRIOR TO DISCHARGE...
== END 2020-12-21 12:10 | disposition home or self-care (01) | DRG 177 ==
LOC: UTC 15:23 → ER 16:37 → 2ND 22:28
PROVIDERS: Student in an Organized Health Care Education/Training Program; Admitting Provider Family Medicine; Emergency Provider Nurse Practitioner Family; PCP Family Medicine; Visit Provider Family Medicine
DX: U07.1 COVID-19 (principal); J12.82 Pneumonia due to coronavirus disease 2019; J96.00 Acute respiratory failure, unspecified whether with hypoxia or hypercapnia; N17.9 Acute kidney failure, unspecified; E87.2 Acidosis; E11.9 Type 2 diabetes mellitus without complications; I10 Essential (primary) hypertension; Z79.84 Long term (current) use of oral hypoglycemic drugs; Z23 Encounter for immunization
CPT/HCPCS: 36415; 71046; 80048; 80053; 80076; 82803; 82962; 85025; 87070; 87077; 87186; 87205; 94640; 94761; 96365; 96366; 97162; 99284; C9803; U0003; U0005

== ENCOUNTER → 2021-05-20 12:13 | Outpatient (CLI) | payer MEDICARE, OTHER, SELFPAY ==
--- NOTE | 2021-05-20 | US_ITS ---
FINAL REPORT CLINICAL HISTORY: bilateral decreased pulses, bilateral claudication, DM, neuropathy, hx of smoking, HTN, hyperlipidemia. FINDINGS: ANKLE-BRACHIAL PRESSURE INDICES Pressure indices are as follows: RIGHT LOWER EXTREMITY: Ankle-brachial pressure index: 1.16 Comments: Normal LEFT LOWER EXTREMITY: Ankle-brachial pressure index: 1.20 Comments: Normal CONCLUSION: No evidence of significant obstructive peripheral vascular disease of the lower extremities Reviewed, Interpreted and Dictated by Bimal Fagan III, MD Transcribed by Audelia Cantrell Authenticated by Bimal Fagan III, MD on 05/20/2021 02:08:37 PM [facility]
== END ==
PROVIDERS: PCP Family Medicine; Visit Provider Family Medicine
DX: I70.211 Atherosclerosis of native arteries of extremities with intermittent claudication, right leg (principal); R09.89 Other specified symptoms and signs involving the circulatory and respiratory systems; E11.65 Type 2 diabetes mellitus with hyperglycemia; E11.42 Type 2 diabetes mellitus with diabetic polyneuropathy; Z79.84 Long term (current) use of oral hypoglycemic drugs
CPT/HCPCS: 93923

== ENCOUNTER → 2021-07-08 08:58 | Outpatient (CLI) | payer MEDICARE, OTHER, SELFPAY ==
[2021-07-08 09:48] LABS: Chloride 110 mmol/L (98-107); Potassium 4.8 mmoL/L (3.5-5.1); Sodium 140 mmol/L (136-145)
[2021-07-08 09:51] LABS: Anion Gap 14.8 mEq/L (5-15); Blood Urea Nitrogen 31 mg/dl (9-20); Carbon Dioxide 20 mmol/L (22.0-30.0); Estimated Glomerular Filt Rate 40 ml/min (>60); GFR (African American) 48 ML/MIN (>60)
[2021-07-08 09:52] LABS: Glucose 115 mg/dl (74-100)
== END ==
PROVIDERS: Visit Provider Family Medicine
DX: N18.32 Chronic kidney disease, stage 3b (principal)
CPT/HCPCS: 36415; 80048